=== PATIENT | female | born 1975 | race Caucasian/White ===

== ENCOUNTER → 2019-02-19 09:02 | Outpatient (CLI) | payer OTHER, SELFPAY ==
--- NOTE | 2019-02-19 09:03 | DI.MG.S_ITS ---
BILATERAL DIGITAL SCREENING MAMMOGRAM 3D/2D WITH CAD: 02/19/2019 CLINICAL: Routine screening. Comparison is made to exam dated: 10/25/2017 [facility]. The tissue of both breasts is heterogeneously dense. This may lower the sensitivity of mammography. Current study was also evaluated with a Computer Aided Detection (CAD) system. No significant masses, calcifications, or other findings are seen in either breast. There has been no significant interval change. IMPRESSION: NEGATIVE There is no mammographic evidence of malignancy. A 1 year screening mammogram is recommended. This exam was interpreted at Station ID: [id number]. NOTE: For mammograms, a report in lay terms will be sent to the patient. Approximately 15% of breast malignancies will not be visualized mammographically. In the management of a palpable breast mass, a negative mammogram must not discourage biopsy of a clinically suspicious lesion. Electronically Signed By: Armando hanson/louis:02/20/2019 11:39:16 copy to: Chad Pearce letter sent: Normal Exam ACR BI-RADS Category 1: Negative [id number]
== END ==
PROVIDERS: Family Provider Family Medicine; PCP Family Medicine; Visit Provider Specialist
DX: Z12.31 Encounter for screening mammogram for malignant neoplasm of breast (principal)
CPT/HCPCS: 77063; 77067

== ENCOUNTER → 2019-05-27 08:41 | Outpatient (CLI) | payer OTHER, SELFPAY ==
[2019-05-27 09:58] LABS: Add Manual Diff / Slide Review NO; Basophils Absolute Auto 0 /uL (0-100); Basophils Percent Auto 0.5 % (0-2); Eosinophils Absolute Auto 100 /uL (0-450); Eosinophils Percent Auto 0.9 % (2-4); Hematocrit 44.5 % (36-46); Hemoglobin 15.4 g/dL (12.0-16.0); Lymphocytes Absolute Auto 2400 /uL (1100-4500); Lymphocytes Percent Auto 36.9 % (25-40); Mean Corpuscular HGB Conc 34.6 % (30-36); Mean Corpuscular Volume 86.5 fL (80-100); Monocytes Absolute Auto 300 /uL (0-900); Monocytes Percent Auto 4.5 % (3-14); Neutrophils Absolute Auto 3700 /uL (1500-7000); Neutrophils Percent Auto 57.2 % (50-75); Platelet Count 219 X10^3/uL (150-400); Red Blood Cell Count 5.14 X10^6/uL (4.0-5.2); White Blood Cell Count 6.5 X10^3/uL (4.5-11.0)
[2019-05-27 10:25] LABS: Alanine Aminotransferase 20 IU/L (9-52); Albumin 4.2 g/dL (3.5-5.0); Albumin Globulin Ratio 1.4 (1.0-2.8); Alkaline Phosphatase 66 U/L (38-126); Aspartate Aminotransferase 28 IU/L (14-36); BUN Creatinine Ratio 15.7 (6-22); Bilirubin Total 0.4 mg/dL (0.2-1.3); Blood Urea Nitrogen 11 mg/dL (7-17); Calcium 8.9 mg/dL (8.4-10.2); Carbon Dioxide 27 mmol/L (22-32); Chloride 104 mmol/L (98-107); Cholesterol 182 mg/dL (140-199); Estimated Glomerular Filt Rate > 60.0 mL/min (>60); Globulin 2.9 g/dL (1.7-4.1); Glucose 88 mg/dL (70-100); HDL Cholesterol 56 mg/dL (40-60); HEMOLYSIS < 15 (0-50); LDL Cholesterol Calculated 99 mg/dL (<100); Potassium 4.7 mmol/L (3.4-5.1); Sodium 140 mmol/L (137-145); Total Protein 7.1 g/dL (6.3-8.2); Triglycerides 135 mg/dL (35-150)
== END ==
PROVIDERS: PCP Family Medicine; Visit Provider Family Medicine
DX: Z00.00 Encounter for general adult medical examination without abnormal findings (principal); Z13.6 Encounter for screening for cardiovascular disorders
CPT/HCPCS: 36415; 80053; 80061; 84443; 85025

== ENCOUNTER → 2019-12-02 12:14 | Outpatient (CLI) | payer OTHER, SELFPAY ==
--- NOTE | 2019-12-02 12:15 | DI.RAD.S_ITS ---
PROCEDURE: XR KNEE RT 3V INDICATIONS: knee and hip TECHNIQUE: 3 views of the knee were acquired. COMPARISON: None. FINDINGS: Bones: No fractures or dislocations. No suspicious bony lesions. Scattered degenerative subchondral sclerosis and spurring. Mild medial and lateral joint space narrowing Soft tissues: No joint effusion. No suspicious soft tissue calcifications. IMPRESSION: Mild knee joint degeneration. Dictated by: Cameron Szymanski M.D. on 12/02/2019 at 16:52 Approved by: Cameron Szymanski M.D. on 12/02/2019 at 16:55
--- NOTE | 2019-12-02 12:15 | DI.RAD.S_ITS ---
PROCEDURE: XR HIP W PEL IF DONE RT 2V INDICATIONS: knee and hip TECHNIQUE: 2 views of the hip were acquired. COMPARISON: None. FINDINGS: Bones: No fractures or dislocations. No suspicious bony lesions. The visualized pelvic ring appears intact. Moderate right hip joint degeneration. Scattered degenerative subchondral sclerosis and spurring. Soft tissues: No suspicious soft tissue calcifications or masses. IMPRESSION: Moderate right hip joint degeneration Dictated by: Cameron Szymanski M.D. on 12/02/2019 at 16:50 Approved by: Cameron Szymanski M.D. on 12/02/2019 at 16:52
== END ==
PROVIDERS: PCP Family Medicine; Referring Provider Family Medicine; Visit Provider Family Medicine
DX: M25.561 Pain in right knee (principal); M25.551 Pain in right hip; M16.11 Unilateral primary osteoarthritis, right hip; M17.11 Unilateral primary osteoarthritis, right knee
CPT/HCPCS: 73502; 73562

== ENCOUNTER 2020-05-15 09:45 | Outpatient (RCR) | payer OTHER, SELFPAY ==
--- NOTE | 2020-04-08 10:30 | PT.OIE ---
Current Diagnoses Unilateral primary osteoarthritis, unspecified hip (04/08/20) Unilateral primary osteoarthritis, unspecified knee (04/08/20) Pain in right hip (04/08/20) Stiffness of right hip, not elsewhere classified (04/08/20) Past Medical History (Last Reviewed 07/16/18 @ 08:50 by Isauro Fernandez PA-C) Chicken pox (Resolved ~1984) Meningitis spinal (Resolved ~1980) Painful menstrual periods (Resolved) Past Surgical History (Last Reviewed 07/16/18 @ 08:50 by Isauro Fernandez PA-C) History of gynecologic surgery (Resolved 11/24/17) Visit Care Team Role Provider Type Chad Pearce MD Attending Provider Physician Primary Care Provider Referring Provider Specialty: [facility] Address: [address] [place] [address] Email: [email or web address] Physical Therapy Initial Evaluation PT-OP-A Visit Information Start: 04/08/20 17:52 Freq: Status: Active Protocol: Document 04/08/20 09:45 DCW (Rec: 04/09/20 12:43 [facility] [id number]) Out-Patient Physical Therapy Visit Information Visit Information Visit Type Initial Evaluation Visit Start Time 09:45 Visit Stop Time 10:30 Total Visit Minutes 45 Visit Number 1 Number of DINKEY DISPATCHER Visits 0 Evaluation Information Evaluation Date 04/08/20 PT-OP-B Current Condition Start: 04/08/20 17:52 Freq: Status: Active Protocol: Document 04/08/20 09:45 DCW (Rec: 04/09/20 12:43 DC [id number]) Current Condition History of Current Condition Onset Date 9 months Current Complaints Right hip and knee pain, stiffness History of Current Condition Pt is a 44 year old female presenting with a nine month history of right hip pain. Pt reports it just seemed to suddenly start one day after a hike, and although it is not constant, it has been bothering her off and on for months, and it is present every day. Pt reports that the pain is not enough to stop her, because she is a mother to two young boys, so she stays active, she just needs to do things differently. Notes that she uses trekking poles when out walking over uneven surfaces, and uses a stand-up desk at work for when she feels like she is tightening up. Pt reports she has had a few instances of her hip getting stuck in a flexed position, and hurts when she tries to stand after an extended period of sitting. Pt also reports pain when trying to roll over in bed when her right leg is in an adducted position. Pain has recently been starting in her right knee, she believes due to compensatory changes. PT-OP-C Subjective Start: 04/08/20 17:52 Freq: Status: Active Protocol: Document 04/08/20 09:45 DCW (Rec: 04/09/20 12:43 DCW [id number]) OP-PT Subjective Patient Comments Patient Comments I kept hoping it would just get better, but it's been nine months. I has gotten a little better recently, and actually the past few days it has been much better. Patient Reported Progress Improving Patient Questionnaires Lower Extremity Functional Scale LEFS Score 56/80 = 70% LEFS Impairment 20 to 39% Impaired (Score 48- 62) OP-PT Pain Assessment Pain Assessment Grid Paper Pain Assessment Grid Completed Yes Location Right Anterior Hip Intensity 7 Scale Used Numeric (0 - 10) Description Pinching,Sharp,Stabbing Description- Other ranges 4-7/10 Pain Aggravating Factors Changing Position Other Pain Aggravating Factors Flexion/Adduction PT-OP-F Manual Assessment Start: 04/08/20 17:52 Freq: Status: Active Protocol: Document 04/08/20 09:45 DCW (Rec: 04/09/20 12:43 DCW [id number]) Manual Assessments Soft Tissue Assessment Soft Tissue Mobility Assessment Hypertonic and tenderness to palpation 2/4: Pain with wincing along right psoas and adductors. Joint Mobility Assessment Joint Mobility Assessment Passive ROM of right hip uncovers clear clunking feeling and complaint of pain with adduction at 90? flexion PT-OP-K Range of Motion Start: 04/08/20 17:52 Freq: Status: Active Protocol: Document 04/08/20 09:45 DCW (Rec: 04/09/20 12:43 DCW [id number]) Hip Goniometric Range of Motion Hip Right Active Hip ROM WFL Yes Hip ROM Limitations Hip ROM Limitations Bony Restriction,Pain Comments limited with adduction at 90? flexion PT-OP-L Special Tests Start: 04/08/20 17:52 Freq: Status: Active Protocol: Document 04/08/20 09:45 DCW (Rec: 04/09/20 12:43 DCW [id number]) Special Tests Hip Special Tests Anterior Labral Test Test Results Positive R Scour Test Test Results Positive R NADYA Test Results R anterior pain PT-OP-M Strength Start: 04/08/20 17:52 Freq: Status: Active Protocol: Document 04/08/20 09:45 DCW (Rec: 04/09/20 12:43 [id number] Hip Strength Hip Manual Muscle Testing Right Flexion (L2) 5 Normal Abduction 4- Good- Adduction 4 Good External Rotation 4+ Good+ Internal Rotation 4+ Good+ Left Flexion (L2) 5 Normal Abduction 4+ Good+ Adduction 4+ Good+ External Rotation 4+ Good+ Internal Rotation 4+ Good+ Knee Strength Knee Manual Muscle Testing Right Flexion (S2) 5 Normal Extension (L3) 5 Normal Left Flexion (S2) 5 Normal Extension (L3) 5 Normal PT-OP-Q Treatments Start: 04/08/20 17:52 Freq: Status: Active Protocol: Document 04/08/20 09:45 DCW (Rec: 04/09/20 12:43 DC [id number]) Therapeutic Exercises Sidelying Exercises 3 Sidelying Exercise Name Hip Abduction Side right 2 Sidelying Exercise Name Reverse Clamshell Side right 1 Sidelying Exercise Name Clamshell Side right PT-OP-T Assessment and Plan Start: 04/08/20 17:52 Freq: Status: Active Protocol: Document 04/08/20 09:45 DCW (Rec: 04/09/20 12:43 [id number] Physical Therapy Assessment Rehab Potential Rehabilitation Potential Good Evaluation Complexity Number of Personal Factors/Comorbidities 1-2 Number of Body Systems Impaired 1-2 Clinical Presentation at Evaluation Stable Impairments Impairments Functional Mobility,Pain,ROM, Strength Goals Three Impairment Positive right hip test for scour and anterior labrum tests Residential Sales Rep Goal (LTG) Right hip special testing negative LTG Duration 06/09/20 Two Impairment Pt experiences a sticking of her hip on flexion Residential Sales Rep Goal (LTG) Pt to report no instances of her hip getting stuck in flexion over two weeks LTG Duration 06/09/20 One Impairment Pt does not have an appropriate home exercise program Short Term Goal (STG) Pt to be independent and complaint with an appropriate HEP STG Duration 05/09/20 Assessment Summary Assessment Pt presents with signs and symptoms consistent with a possible labral tear in her right hip. Positive scour and anterior labrum testing, combined with subjective complaints of her hip getting stuck in a flexed position all point to the possibility of labral involvement. Severity of any possible tear difficult to determine without imaging, however pt is noticing improvement recently, and does not seem to be restricted with most movement, which would lead to an assumption that if there is a tear present, it may be mild, and may just need added time to heal. Pt should benefit from skilled therapy focusing on increasing hip strength, mobility, and stability, as well as increasing quality of functional movement to limit compensatory changes leading to injury of her knee. It instructed in an HEP today, and will be unable to return for a follow-up within the next two-three weeks due to her family moving into a new home, but she will return after her move to report on porgress and level of function . May benefit from an MRI if conservative treatment is not effective. Physical Therapy Plan Frequency and Duration Frequency of Treatment 1x/Week Duration of Treatment 8 weeks Plan of Care Start Date 04/08/20 Plan of Care End Date 06/03/20 Therapeutic Interventions Therapeutic Interventions Home Exercise Program,Joint Mobilizations,Manual Therapy, Patient/Caregiver Education, Self-Care/Home Management,Soft Tissue Mobilization, Therapeutic Exercises Modalities Cold Pack/Ice Massage,Electric Stimulation,Hot Packs, Ultrasound Next Visit Focus/Plan Next Note Type Treatment Note Next Visit Plan Strengthening, joint mobilization, improving hip stability
--- NOTE | 2020-04-08 10:30 | PT.OPPOC ---
Physical, Occupational & Speech Therapy At [facility] Current Diagnoses Unilateral primary osteoarthritis, unspecified hip (04/08/20) Unilateral primary osteoarthritis, unspecified knee (04/08/20) Pain in right hip (04/08/20) Stiffness of right hip, not elsewhere classified (04/08/20) Visit Care Team Role Provider Type Chad Pearce MD Attending Provider Physician Primary Care Provider Referring Provider Specialty: Family Practice Address: [address] [place] [address], [id number] Email: [email or web address] Plan Of Care PT-OP-T Assessment and Plan Start: 04/08/20 17:52 Freq: Status: Active Protocol: Document 04/08/20 09:45 DCW (Rec: 04/09/20 12:43 DCW [id number]) Physical Therapy Assessment Rehab Potential Rehabilitation Potential Good Evaluation Complexity Number of Personal Factors/Comorbidities 1-2 Number of Body Systems Impaired 1-2 Clinical Presentation at Evaluation Stable Impairments Impairments Functional Mobility,Pain,ROM, Strength Goals Three Impairment Positive right hip test for scour and anterior labrum tests Halfway Goal (LTG) Right hip special testing negative LTG Duration 06/09/20 Two Impairment Pt experiences a sticking of her hip on flexion Halfway Goal (LTG) Pt to report no instances of her hip getting stuck in flexion over two weeks LTG Duration 06/09/20 One Impairment Pt does not have an appropriate home exercise program Short Term Goal (STG) Pt to be independent and complaint with an appropriate HEP STG Duration 05/09/20 Assessment Summary Assessment Pt presents with signs and symptoms consistent with a possible labral tear in her right hip. Positive scour and anterior labrum testing, combined with subjective complaints of her hip getting stuck in a flexed position all point to the possibility of labral involvement. Severity of any possible tear difficult to determine without imaging, however pt is noticing improvement recently, and does not seem to be restricted with most movement, which would lead to an assumption that if there is a tear present, it may be mild, and may just need added time to heal. Pt should benefit from skilled therapy focusing on increasing hip strength, mobility, and stability, as well as increasing quality of functional movement to limit compensatory changes leading to injury of her knee. It instructed in an HEP today, and will be unable to return for a follow-up within the next two-three weeks due to her family moving into a new home, but she will return after her move to report on porgress and level of function . May benefit from an MRI if conservative treatment is not effective. Physical Therapy Plan Frequency and Duration Frequency of Treatment 1x/Week Duration of Treatment 8 weeks Plan of Care Start Date 04/08/20 Plan of Care End Date 06/03/20 Therapeutic Interventions Therapeutic Interventions Home Exercise Program,Joint Mobilizations,Manual Therapy, Patient/Caregiver Education, Self-Care/Home Management,Soft Tissue Mobilization, Therapeutic Exercises Modalities Cold Pack/Ice Massage,Electric Stimulation,Hot Packs, Ultrasound Next Visit Focus/Plan Next Note Type Treatment Note Next Visit Plan Strengthening, joint mobilization, improving hip stability Plan of Care Dates Plan of Care Start Date 04/08/20 Plan of Care End Date 06/03/20 Electronically Signed by: Azam Ruffin, PT 04/09/20 [id number] Please Sign and Return: I have reviewed this Plan of Care and certify that the skilled therapy services above are required to meet the patient?s needs. Physician Signature Date Printed Name and Credentials Clinical Instructor Signature Printed Name and Credentials
--- NOTE | 2020-05-15 17:07 | PT.OTN ---
Current Diagnoses Unilateral primary osteoarthritis, unspecified hip (05/15/20) Unilateral primary osteoarthritis, unspecified knee (05/15/20) Pain in right hip (05/15/20) Stiffness of right hip, not elsewhere classified (05/15/20) Physical Therapy Treatment Note PT-OP-A Visit Information Start: 04/08/20 17:52 Freq: Status: Active Protocol: Document 05/15/20 09:55 LRN (Rec: 05/15/20 10:36 LRN [id number]) Out-Patient Physical Therapy Visit Information Visit Information Visit Type Treatment Note Visit Start Time 09:55 Visit Stop Time 10:34 Total Visit Minutes 39 Visit Number 2 Evaluation Information Evaluation Date 04/08/20 PT-OP-B Current Condition Start: 04/08/20 17:52 Freq: Status: Active Protocol: Document 04/08/20 09:45 DCW (Rec: 04/09/20 12:43 DCW [id number]) Current Condition History of Current Condition Onset Date 9 months Current Complaints Right hip and knee pain, stiffness History of Current Condition Pt is a 44 year old female presenting with a nine month history of right hip pain. Pt reports it just seemed to suddenly start one day after a hike, and although it is not constant, it has been bothering her off and on for months, and it is present every day. Pt reports that the pain is not enough to stop her, because she is a mother to two young boys, so she stays active, she just needs to do things differently. Noptes that she uses trekking poles when out walking over uneven surfaces, and uses a stand-up desk at work for when she feels like she is tightening up. Pt reports she has had a few instances of her hip getting stuck in a flexed position, and hurts when she tries to stand after an extended period of sitting. Pt also reports pain when trying to roll over in bed when her right leg is in an adducted position. Pain has recently been starting in her right knee, she believes due to compensatory changes. PT-OP-C Subjective Start: 04/08/20 17:52 Freq: Status: Active Protocol: Document 05/15/20 09:55 LRN (Rec: 05/15/20 10:36 LRN [id number]) OP-PT Subjective Patient Comments Patient Comments Last couple months is better, but sitting is worst. Most stiff and painful in the R groin radiating to the R knee. As walk and move it loosens. Can only recall 2 exercises. PT-OP-F Manual Assessment Start: 04/08/20 17:52 Freq: Status: Active Protocol: Document 04/08/20 09:45 DCW (Rec: 04/09/20 12:43 DCW [id number]) Manual Assessments Soft Tissue Assessment Soft Tissue Mobility Assessment Hypertonic and tenderness to palpation 2/4: Pain with wincing along right psoas and adductors. Joint Mobility Assessment Joint Mobility Assessment Passive ROM of right hip uncovers clear clunking feeling and complaint of pain with adduction at 90? flexion PT-OP-K Range of Motion Start: 04/08/20 17:52 Freq: Status: Active Protocol: Document 04/08/20 09:45 DCW (Rec: 04/09/20 12:43 DCW [id number]) Hip Goniometric Range of Motion Hip Right Active Hip ROM WFL Yes Hip ROM Limitations Hip ROM Limitations Bony Restriction,Pain Comments limited with adduction at 90? flexion PT-OP-L Special Tests Start: 04/08/20 17:52 Freq: Status: Active Protocol: Document 04/08/20 09:45 DCW (Rec: 04/09/20 12:43 DCW [id number]) Special Tests Hip Special Tests Anterior Labral Test Test Results Positive R Scour Test Test Results Positive R NADYA Test Results R anterior pain PT-OP-M Strength Start: 04/08/20 17:52 Freq: Status: Active Protocol: Document 04/08/20 09:45 DCW (Rec: 04/09/20 12:43 DCW [id number]) Hip Strength Hip Manual Muscle Testing Right Flexion (L2) 5 Normal Abduction 4- Good- Adduction 4 Good External Rotation 4+ Good+ Internal Rotation 4+ Good+ Left Flexion (L2) 5 Normal Abduction 4+ Good+ Adduction 4+ Good+ External Rotation 4+ Good+ Internal Rotation 4+ Good+ Knee Strength Knee Manual Muscle Testing Right Flexion (S2) 5 Normal Extension (L3) 5 Normal Left Flexion (S2) 5 Normal Extension (L3) 5 Normal PT-OP-Q Treatments Start: 04/08/20 17:52 Freq: Status: Active Protocol: Document 05/15/20 09:55 LRN (Rec: 05/15/20 10:36 LRN [id number]) Therapeutic Exercises Supine Exercises 1 Supine Exercise Name L KTC stretch with femoral head posterior/inferior glide applied Side left Reps/Minutes 4' Sidelying Exercises 4 Sidelying Exercise Name Hip ER stretch in BKFO position with bolster for support Side right 3 Sidelying Exercise Name Hip Abduction Side right Reps/Minutes 15 x 2 Comments Phys and v cuing needed for proper performance of ex 2 Sidelying Exercise Name Reverse Clamshell Side right Reps/Minutes 15x 2 Comments Phys cuing needed to start for proper core stab 1 Sidelying Exercise Name Clamshell Side right Reps/Minutes 15x 2 Comments Much phys and cuing needed for proper positioning for exercise Sitting Exercises 1 Sitting Exercise Name Hip ER/IR painfree movement Side bilateral Reps/Minutes 2' Comments Done during discussion of anatomy education Manual Therapy Treatment Joint Mobilizations 1 Joint L Femoral Acetabular joint Direction Posterior/inferior Grade III Body Position Hooklying Reps/Duration 8 Comments Leg in various positions with best position in supine with L leg ~20 deg's ER'd/AB'd. Self-Care/Home Management Treatment Education Patient Education Joint Protection,Pain Management Other Education Pt educated in general joint mechanics and mechanics of movement and pain/inflammation . Activities Self-Care/Home Management Activities Recommended pt use ice to anterior hip for pain management. PT-OP-T Assessment and Plan Start: 04/08/20 17:52 Freq: Status: Active Protocol: Document 05/15/20 09:55 LRN (Rec: 05/15/20 10:36 LRN [id number]) Physical Therapy Assessment Goals Three Impairment Positive right hip test for scour and anterior labrum tests Fpc Goal (LTG) Right hip special testing negative LTG Duration 06/09/20 Two Impairment Pt experiences a sticking of her hip on flexion Fpc Goal (LTG) Pt to report no instances of her hip getting stuck in flexion over two weeks LTG Duration 06/09/20 One Impairment Pt does not have an appropriate home exercise program Short Term Goal (STG) Pt to be independent and complaint with an appropriate HEP STG Duration 05/09/20 Progress Towards Goals Progress Comments L anterior hip (groin) pain decreased from 11/25 to 110 after therapy. Assessment Summary Assessment Possible labral tear of R hip. R hip IR is easier than ER and without pain. + response to JMT of posterior glide of L femoral head. Pt able to lie supine without pain after mobilization. Not able to get a L posterior hip stretch due to onset of anterior groin discomfort first. Pt choosing to ice at home. Physical Therapy Plan Frequency and Duration Frequency of Treatment 1x/Week Duration of Treatment 8 weeks Plan of Care Start Date 04/08/20 Plan of Care End Date 06/03/20 Next Visit Focus/Plan Next Note Type Treatment Note Next Visit Plan Strengthening, joint mobilization, improving hip stability
--- NOTE | 2020-08-07 10:27 | PT.OPDS ---
Current Diagnoses Unilateral primary osteoarthritis, unspecified hip (05/15/20) Unilateral primary osteoarthritis, unspecified knee (05/15/20) Pain in right hip (05/15/20) Stiffness of right hip, not elsewhere classified (05/15/20) Visit Care Team Role Provider Type Chad Pearce MD Attending Provider Physician Primary Care Provider Referring Provider Specialty: [facility] Address: [address] [place] [address], [facility] Email: [email or web address] Visit Number Visit Number 2 Discharge Summary PT-OP-B Current Condition Start: 04/08/20 17:52 Freq: Status: Active Protocol: Document 04/08/20 09:45 DCW (Rec: 04/09/20 12:43 DCW [id number]) Current Condition History of Current Condition Onset Date 9 months Current Complaints Right hip and knee pain, stiffness History of Current Condition Pt is a 44 year old female presenting with a nine month history of right hip pain. Pt reports it just seemed to suddenly start one day after a hike, and although it is not constant, it has been bothering her off and on for months, and it is present every day. Pt reports that the pain is not enough to stop her, because she is a mother to two young boys, so she stays active, she just needs to do things differently. [place] that she uses trekking poles when out walking over uneven surfaces, and uses a stand-up desk at work for when she feels like she is tightening up. Pt reports she has had a few instances of her hip getting stuck in a flexed position, and hurts when she tries to stand after an extended period of sitting. Pt also reports pain when trying to roll over in bed when her right leg is in an adducted position. Pain has recently been starting in her right knee, she believes due to compensatory changes. PT-OP-C Subjective Start: 04/08/20 17:52 Freq: Status: Active Protocol: Document 05/15/20 09:55 LRN (Rec: 05/15/20 10:36 LRN [id number]) OP-PT Subjective Patient Comments Patient Comments Last couple months is better, but sitting is worst. Most stiff and painful in the R groin radiating to the R knee. As walk and move it loosens. Can only recall 2 exercises. PT-OP-F Manual Assessment Start: 04/08/20 17:52 Freq: Status: Active Protocol: Document 04/08/20 09:45 DCW (Rec: 04/09/20 12:43 DCW [id number]) Manual Assessments Soft Tissue Assessment Soft Tissue Mobility Assessment Hypertonic and tenderness to palpation 2/4: Pain with wincing along right psoas and adductors. Joint Mobility Assessment Joint Mobility Assessment Passive ROM of right hip uncovers clear clunking feeling and complaint of pain with adduction at 90? flexion PT-OP-K Range of Motion Start: 04/08/20 17:52 Freq: Status: Active Protocol: Document 04/08/20 09:45 DCW (Rec: 04/09/20 12:43 DCW [id number]) Hip Goniometric Range of Motion Hip Right Active Hip ROM WFL Yes Hip ROM Limitations Hip ROM Limitations Bony Restriction,Pain Comments limited with adduction at 90? flexion PT-OP-L Special Tests Start: 04/08/20 17:52 Freq: Status: Active Protocol: Document 04/08/20 09:45 DCW (Rec: 04/09/20 12:43 DCW [id number]) Special Tests Hip Special Tests Anterior Labral Test Test Results Positive R Scour Test Test Results Positive R NADYA Test Results R anterior pain PT-OP-M Strength Start: 04/08/20 17:52 Freq: Status: Active Protocol: Document 04/08/20 09:45 DCW (Rec: 04/09/20 12:43 DCW [id number]) Hip Strength Hip Manual Muscle Testing Right Flexion (L2) 5 Normal Abduction 4- Good- Adduction 4 Good External Rotation 4+ Good+ Internal Rotation 4+ Good+ Left Flexion (L2) 5 Normal Abduction 4+ Good+ Adduction 4+ Good+ External Rotation 4+ Good+ Internal Rotation 4+ Good+ Knee Strength Knee Manual Muscle Testing Right Flexion (S2) 5 Normal Extension (L3) 5 Normal Left Flexion (S2) 5 Normal Extension (L3) 5 Normal PT-OP-T Assessment and Plan Start: 04/08/20 17:52 Freq: Status: Active Protocol: Document 08/07/20 10:25 DCW (Rec: 08/07/20 10:27 RASHID [id number]) Physical Therapy Assessment Assessment Summary Assessment Pt never scheduled more appointments following her second visit. Pt has now not been seen in nearly three months. Pt will be discharged at this time, will need a new referral in order to return to skilled therapy.
== END 2020-08-14 08:10 ==
LOC: PHYS 09:45
PROVIDERS: PCP Family Medicine; Referring Provider Family Medicine; Visit Provider Family Medicine
DX: M16.10 Unilateral primary osteoarthritis, unspecified hip (principal); M17.10 Unilateral primary osteoarthritis, unspecified knee; M25.551 Pain in right hip; M25.651 Stiffness of right hip, not elsewhere classified
CPT/HCPCS: 97110; 97140; 97161

== ENCOUNTER → 2020-08-28 08:26 | Outpatient (CLI) | payer OTHER, SELFPAY ==
[2020-08-28 09:19] LABS: Add Manual Diff / Slide Review NO; Basophils Absolute Auto 0 /uL (0-100); Basophils Percent Auto 0.3 % (0-2); Eosinophils Absolute Auto 100 /uL (0-450); Hematocrit 45.5 % (36-46); Hemoglobin 15.6 g/dL (12.0-16.0); Lymphocytes Absolute Auto 2300 /uL (1100-4500); Mean Corpuscular HGB Conc 34.3 % (30-36); Mean Corpuscular Hemoglobin 29.6 PG (26-34); Mean Corpuscular Volume 86.4 fL (80-100); Monocytes Absolute Auto 500 /uL (0-900); Monocytes Percent Auto 6.7 % (3-14); Neutrophils Absolute Auto 4300 /uL (1500-7000); Platelet Count 233 X10^3/uL (150-400); Red Blood Cell Count 5.27 X10^6/uL (4.0-5.2); Red Cell Distribution Width 12.8 % (11.6-14.8); White Blood Cell Count 7.1 X10^3/uL (4.5-11.0)
[2020-08-28 09:53] LABS: Alanine Aminotransferase 17 IU/L (<35); Albumin 4.2 g/dL (3.5-5.0); Albumin Globulin Ratio 1.4 (1.0-2.8); Alkaline Phosphatase 73 U/L (38-126); Aspartate Aminotransferase 19 IU/L (14-36); BUN Creatinine Ratio 14.1 (6-22); Bilirubin Total 0.6 mg/dL (0.2-1.3); Blood Urea Nitrogen 10 mg/dL (7-17); Calcium 9.2 mg/dL (8.4-10.2); Carbon Dioxide 25 mmol/L (22-32); Chloride 105 mmol/L (98-107); Cholesterol 185 mg/dL (140-199); Estimated Glomerular Filt Rate > 60.0 mL/min (>60); Globulin 2.9 g/dL (1.7-4.1); Glucose 92 mg/dL (70-100); HDL Cholesterol 62 mg/dL (40-60); HEMOLYSIS < 15 (0-50); LDL Cholesterol Calculated 105 mg/dL (<100); Potassium 4.3 mmol/L (3.4-5.1); Sodium 136 mmol/L (137-145); Total Protein 7.1 g/dL (6.3-8.2); Triglycerides 89 mg/dL (35-150)
[2020-08-28 10:23] LABS: TSH w/ Reflex to FT4 1.69 uIU/mL (0.47-4.68)
== END ==
PROVIDERS: PCP Family Medicine; Referring Provider Family Medicine; Visit Provider Family Medicine
DX: Z00.00 Encounter for general adult medical examination without abnormal findings (principal); Z13.1 Encounter for screening for diabetes mellitus; Z13.6 Encounter for screening for cardiovascular disorders
CPT/HCPCS: 36415; 80053; 80061; 84443; 85025

== ENCOUNTER → 2020-09-28 16:51 | Outpatient (CLI) | payer OTHER, SELFPAY ==
--- NOTE | 2020-09-28 16:54 | DI.MG.S_ITS ---
BILATERAL DIGITAL SCREENING MAMMOGRAM 3D/2D WITH CAD: 09/28/2020 CLINICAL: Routine screening. Comparison is made to exams dated: 02/19/2019 mammogram and 10/25/2017 mammogram - [facility]. The tissue of both breasts is heterogeneously dense. This may lower the sensitivity of mammography. Current study was also evaluated with a Computer Aided Detection (CAD) system. No significant masses, calcifications, or other findings are seen in either breast. There has been no significant interval change. IMPRESSION: NEGATIVE There is no mammographic evidence of malignancy. A 1 year screening mammogram is recommended. This exam was interpreted at Station ID: [id number]. NOTE: For mammograms, a report in lay terms will be sent to the patient. Approximately 15% of breast malignancies will not be visualized mammographically. In the management of a palpable breast mass, a negative mammogram must not discourage biopsy of a clinically suspicious lesion. Electronically Signed By: Chad Larios M.D., jr/louis:09/28/2020 17:32:23 copy to: GALLO STINSON letter sent: Normal Exam ACR BI-RADS Category 1: Negative 3341F
== END ==
PROVIDERS: PCP Specialist; Referring Provider Family Medicine; Visit Provider Family Medicine
DX: Z12.31 Encounter for screening mammogram for malignant neoplasm of breast (principal)
CPT/HCPCS: 77063; 77067

== ENCOUNTER → 2021-01-08 09:40 | Outpatient (CLI) | payer OTHER, SELFPAY ==
[2021-01-08] MEDS: COVID-19 VACC #1, MRNA(MOD) 100 MCG/0.5 ML VIAL IM (09:56)
== END ==
PROVIDERS: PCP Family Medicine; Visit Provider Internal Medicine
DX: Z23 Encounter for immunization (principal)
CPT/HCPCS: 0011A; 91301

== ENCOUNTER → 2021-02-05 09:55 | Outpatient (CLI) | payer OTHER, SELFPAY ==
[2021-02-05] MEDS: COVID-19 VACC #2, MRNA(MOD) 100 MCG/0.5 ML VIAL IM (10:03)
== END ==
PROVIDERS: PCP Family Medicine; Visit Provider Internal Medicine
DX: Z23 Encounter for immunization (principal)
CPT/HCPCS: 0012A; 91301

== ENCOUNTER → 2021-07-14 10:25 | Outpatient (CLI) | payer OTHER, SELFPAY ==
[2021-07-14 12:24] LABS: COVID19 -Nasal RAPID Negative (Negative)
== END ==
PROVIDERS: PCP Family Medicine; Visit Provider Nurse Practitioner Family
DX: Z20.822 Contact with and (suspected) exposure to COVID-19 (principal); R05.9 Cough, unspecified; R51.9 Headache, unspecified; R53.83 Other fatigue
CPT/HCPCS: 87635

== ENCOUNTER → 2021-07-20 10:23 | Outpatient (CLI) | payer OTHER, SELFPAY ==
--- NOTE | 2021-07-20 10:25 | DI.RAD.S_ITS ---
PROCEDURE: XR CHEST 2V INDICATIONS: Persistent cough x 1 year; getting worse last 30 days TECHNIQUE: 2 views of the chest were acquired. COMPARISON: None. FINDINGS: Surgical changes and devices: None. Lungs and pleura: No consolidation, pleural effusions or pneumothorax. Mediastinum: Mediastinal contours are normal. Heart size is normal. Bones and chest wall: No suspicious bony abnormalities. Soft tissues appear unremarkable. IMPRESSION: No acute cardiopulmonary abnormality. Dictated by: Pascual Rodriguez M.D. on 07/20/2021 at 10:36 Approved by: Pascual Rodriguez M.D. on 07/20/2021 at 10:36
[2021-07-20 12:12] LABS: Add Manual Diff / Slide Review NO; Basophils Absolute Auto 0 /uL (0-100); Basophils Percent Auto 0.3 % (0-2); Eosinophils Absolute Auto 100 /uL (0-450); Eosinophils Percent Auto 1.1 % (2-4); Hematocrit 41.8 % (36-46); Hemoglobin 14.6 g/dL (12.0-16.0); Lymphocytes Absolute Auto 2000 /uL (1100-4500); Mean Corpuscular HGB Conc 34.9 % (30-36); Mean Corpuscular Hemoglobin 29.4 PG (26-34); Mean Corpuscular Volume 84.2 fL (80-100); Monocytes Absolute Auto 500 /uL (0-900); Monocytes Percent Auto 4.7 % (3-14); Neutrophils Absolute Auto 7400 /uL (1500-7000); Neutrophils Percent Auto 73.9 % (50-75); Platelet Count 243 X10^3/uL (150-400); Red Blood Cell Count 4.97 X10^6/uL (4.0-5.2); Red Cell Distribution Width 13.4 % (11.6-14.8)
== END ==
PROVIDERS: PCP Family Medicine; Referring Provider Physician Assistant; Visit Provider Physician Assistant
DX: R05.9 Cough, unspecified (principal); R52 Pain, unspecified; R68.83 Chills (without fever)
CPT/HCPCS: 36415; 71046; 85025

== ENCOUNTER → 2021-07-28 08:55 | Outpatient (CLI) | payer OTHER, SELFPAY ==
[2021-07-28 10:42] LABS: Vitamin D 25 Hydroxy (D3) 28.3 ng/mL (30.0-100.0)
[2021-07-28 10:56] LABS: Thyroid Stimulating Hormone 0.948 uIU/mL (0.47-4.68)
== END ==
PROVIDERS: PCP Family Medicine; Referring Provider Physician Assistant; Visit Provider Physician Assistant
DX: R53.82 Chronic fatigue, unspecified (principal); R79.89 Other specified abnormal findings of blood chemistry; R05.9 Cough, unspecified; R52 Pain, unspecified
CPT/HCPCS: 36415; 82306; 84443

== ENCOUNTER → 2021-08-05 14:50 | Outpatient (CLI) | payer OTHER, SELFPAY ==
[2021-08-05 16:13] LABS: COVID19 -Nasal RAPID Negative (Negative)
== END ==
PROVIDERS: PCP Family Medicine; Referring Provider Internal Medicine; Visit Provider Internal Medicine
DX: Z20.822 Contact with and (suspected) exposure to COVID-19 (principal)
CPT/HCPCS: 87635; C9803

== ENCOUNTER → 2021-08-06 07:02 | Outpatient (CLI) | payer OTHER, SELFPAY ==
--- NOTE | 2021-08-11 08:49 | PM.PFT.1 ---
Pulmonary Function Test Referral & Results Date Patient Seen: 08/06/21 Requesting provider: Ciera Boyer Results: The spirometry demonstrates an FVC of 4.93 L which is 111% of predicted. The FEV1 was measured at 3.98 L which is 112% of predicted. The FEV1/FVC ratio was 81 which is 99% of predicted. Following the administration of bronchodilator there was a 35% improvement in FEF 25-75% Lung volumes show an SVC of 4.94 L which is 123% of predicted. The diffusing capacity was measured at 31.28 which is 96% of predicted. The maximum voluntary ventilation was normal Interpretation: This study demonstrates normal pulmonary function
== END ==
PROVIDERS: PCP Family Medicine; Referring Provider Physician Assistant; Visit Provider Physician Assistant
DX: R05.9 Cough, unspecified (principal)
CPT/HCPCS: 94060; 94726; 94729

== ENCOUNTER → 2022-06-01 08:02 | Outpatient (CLI) | payer OTHER, MEDICAID, SELFPAY ==
[2022-06-01 10:36] LABS: Alanine Aminotransferase 14 IU/L (<35); Albumin 4.1 g/dL (3.5-5.0); Albumin Globulin Ratio 1.5 (1.0-2.8); Alkaline Phosphatase 65 U/L (38-126); Aspartate Aminotransferase 21 IU/L (14-36); BUN Creatinine Ratio 18.9 (6-22); Bilirubin Total 0.7 mg/dL (0.2-1.3); Blood Urea Nitrogen 14 mg/dL (7-17); Calcium 8.8 mg/dL (8.4-10.2); Carbon Dioxide 25 mmol/L (22-32); Chloride 103 mmol/L (98-107); Cholesterol 172 mg/dL (140-199); Estimated Glomerular Filt Rate > 60 mL/min (>60); Globulin 2.7 g/dL (1.7-4.1); Glucose 81 mg/dL (70-100); HDL Cholesterol 52 mg/dL (40-60); HEMOLYSIS < 15 (0-50); LDL Cholesterol Calculated 105 mg/dL (<100); Potassium 4.3 mmol/L (3.4-5.1); Sodium 138 mmol/L (137-145); Total Protein 6.8 g/dL (6.3-8.2); Triglycerides 74 mg/dL (35-150)
[2022-06-01 10:51] LABS: Vitamin D 25 Hydroxy (D3) 36.1 ng/mL (30.0-100.0)
[2022-06-01 11:08] LABS: TSH w/ Reflex to FT4 1.06 uIU/mL (0.47-4.68)
== END ==
PROVIDERS: PCP Family Medicine; Referring Provider Physician Assistant; Visit Provider Physician Assistant
DX: E55.9 Vitamin D deficiency, unspecified (principal); R53.82 Chronic fatigue, unspecified; Z13.220 Encounter for screening for lipoid disorders; Z13.6 Encounter for screening for cardiovascular disorders
CPT/HCPCS: 36415; 80053; 80061; 82306; 84443

== ENCOUNTER → 2022-06-09 12:45 | Outpatient (CLI) | payer OTHER, MEDICAID, SELFPAY ==
--- NOTE | 2022-06-09 12:47 | DI.US.S_ITS ---
PROCEDURE: US PELVIC COMPLETE INDICATIONS: Heavy menses q 3 weeks TECHNIQUE: Real-time scanning was performed of the pelvic organs, with image documentation. Additional endovaginal scanning was necessary due to incomplete visualization of the adnexal and endometrial structures by transabdominal scanning. COMPARISON: [facility], US, PELVIC COMPLETE, 01/13/2016, 15:39. FINDINGS: Uterus: Uterus is anteverted and normal in size at 9.4 x 4.2 x 5.4 cm. The myometrium is mildly heterogeneous. The endometrium measures 11.7 mm combined thickness. There are nabothian cyst in cervix. Ovaries: The right ovary measures 3.3 x 2.2 x 2.6 cm, with a calculated ovarian volume of 9.6 cc. The left ovary is not visualized. There is a 2.0 x 2.0 x 1.8 cm simple cyst in the right ovary. Less than 12 follicles can be seen in the right ovary. No adnexal masses are seen. Other: No pathologic free abdominal or pelvic fluid. IMPRESSION: 1. Endometrium is prominent but within normal limits for a premenopausal woman. 2. Mildly heterogeneous myometrium. 3. A 2 cm cyst in the right ovary, most likely a dominant ovarian follicle. 4. Left ovary is not visualized, therefore, cannot be evaluated. We strive to produce accurate, complete, and clear reports of imaging services. To assist us in improving patient care, this report was composed using standard report templates and voice recognition software. Therefore, it may contain abnormal punctuation, insertions and/or omissions. Occasional wrong-word or sound-alike substitutions may occur. Though we review the report and make efforts to correct it, we do recommend that the report be read carefully in proper context to recognize any text inaccuracies. Dictated by: Josue Ramos M.D. on 06/10/2022 at 8:08 Approved by: Josue Ramos M.D. on 06/10/2022 at 8:11
== END ==
PROVIDERS: PCP Family Medicine; Referring Provider Physician Assistant; Visit Provider Physician Assistant
DX: N94.4 Primary dysmenorrhea (principal); N92.4 Excessive bleeding in the premenopausal period; N83.201 Unspecified ovarian cyst, right side
CPT/HCPCS: 76830; 76856

== ENCOUNTER → 2022-06-10 07:49 | Outpatient (CLI) | payer OTHER, MEDICAID, SELFPAY ==
[2022-06-13 15:59] LABS: Fecal Immunochemical Test Negative (Negative)
== END ==
PROVIDERS: PCP Family Medicine; Referring Provider Physician Assistant; Visit Provider Physician Assistant
DX: Z12.11 Encounter for screening for malignant neoplasm of colon (principal)
CPT/HCPCS: 82274

== ENCOUNTER → 2022-06-13 12:49 | Outpatient (CLI) | payer OTHER, MEDICAID, SELFPAY | PROVIDERS: PCP Family Medicine; Referring Provider Physician Assistant; Visit Provider Physician Assistant | DX: M85.80 Other specified disorders of bone density and structure, unspecified site (principal); Z82.62 Family history of osteoporosis | CPT/HCPCS: 77080 ==

== ENCOUNTER → 2022-09-29 11:01 | Outpatient (CLI) | payer BC, OTHER, MEDICAID, SELFPAY ==
[2022-09-29 11:40] LABS: Add Manual Diff / Slide Review NO; Basophils Absolute Auto 0 /uL (0-100); Basophils Percent Auto 0.3 % (0-2); Eosinophils Absolute Auto 0 /uL (0-450); Eosinophils Percent Auto 0.3 % (2-4); Hematocrit 42.7 % (36-46); Hemoglobin 14.8 g/dL (12.0-16.0); Lymphocytes Absolute Auto 2200 /uL (1100-4500); Lymphocytes Percent Auto 30.9 % (25-40); Mean Corpuscular HGB Conc 34.6 % (30-36); Mean Corpuscular Hemoglobin 29.7 PG (26-34); Mean Corpuscular Volume 85.8 fL (80-100); Monocytes Absolute Auto 500 /uL (0-900); Monocytes Percent Auto 6.5 % (3-14); Neutrophils Absolute Auto 4500 /uL (1500-7000); Platelet Count 210 X10^3/uL (150-400); Red Blood Cell Count 4.98 X10^6/uL (4.0-5.2); Red Cell Distribution Width 12.9 % (11.6-14.8); White Blood Cell Count 7.2 X10^3/uL (4.5-11.0)
[2022-09-29 12:57] LABS: Vitamin B12 626 pg/mL (239-931)
== END ==
PROVIDERS: PCP Family Medicine; Referring Provider Family Medicine; Visit Provider Family Medicine
DX: R53.82 Chronic fatigue, unspecified (principal); E55.9 Vitamin D deficiency, unspecified
CPT/HCPCS: 36415; 82607; 85025

== ENCOUNTER → 2022-12-09 13:08 | Outpatient (CLI) | payer BC, OTHER, MEDICAID, SELFPAY ==
--- NOTE | 2022-12-09 | DI.MG.S_ITS ---
BILATERAL DIGITAL SCREENING MAMMOGRAM 3D/2D WITH CAD: 12/09/2022 CLINICAL: Routine screening. Comparison is made to exams dated: 09/28/2020 mammogram, 02/19/2019 mammogram, and 10/25/2017 mammogram - [facility]. Both breasts are heterogeneously dense, which may obscure small masses (category c / 51-75% glandular tissue). Current study was also evaluated with a Computer Aided Detection (CAD) system. No significant masses, calcifications, or other findings are seen in either breast. There has been no significant interval change. IMPRESSION: NEGATIVE There is no mammographic evidence of malignancy. A 1 year screening mammogram is recommended. Based on the Tyrer Cuzick model (a risk assessment model) the patient's lifetime risk is 13.5% and her 10 year risk is 2.5%. According to the ACR, ACS, and NCCN guidelines, an annual breast MRI exam along with mammogram is recommended if the patient's lifetime risk is 20% or greater. This exam was interpreted at Station ID: [id number]. NOTE: For mammograms, a report in lay terms will be sent to the patient. Approximately 15% of breast malignancies will not be visualized mammographically. In the management of a palpable breast mass, a negative mammogram must not discourage biopsy of a clinically suspicious lesion. Electronically Signed By: Floridalma baumann/louis:12/09/2022 15:47:24 copy to: GALLO STINSON letter sent: Normal Exam ACR BI-RADS Category 1: Negative 3341F
== END ==
PROVIDERS: PCP Family Medicine; Referring Provider Family Medicine; Visit Provider Family Medicine
DX: Z12.31 Encounter for screening mammogram for malignant neoplasm of breast (principal)
CPT/HCPCS: 77063; 77067

== ENCOUNTER → 2023-01-12 07:42 | Outpatient (CLI) | payer BC, OTHER, MEDICAID, SELFPAY ==
[2023-01-12 09:25] LABS: Free T3, Triiodothyronine Free 3.88 pg/mL (2.77-5.27); Free T4, Direct Thyroxine 1.18 ng/dL (0.78-2.19)
[2023-01-12 09:42] LABS: Ferritin 11 ng/mL (6-137)
[2023-01-12 10:14] LABS: Folate 19.6 ng/mL (2.76-20.0); Vitamin B12 589 pg/mL (239-931)
[2023-01-13 09:34] LABS: Thyroid Peroxidase Antibodies <9 IU/mL (0-34)
[2023-01-13 20:07] LABS: Deamidated Gliadin Ab IgA 3 units (0-19); Deamidated Gliadin Ab IgG 2 units (0-19); Immunoglobulin A,Qn 75 mg/dL (87-352); t-Transglutaminase IgA <2 U/mL (0-3)
[2023-01-16 20:38] LABS: ANA Screen, IFA Negative (.)
== END ==
PROVIDERS: PCP Family Medicine; Referring Provider Naturopath; Visit Provider Naturopath
DX: M79.10 Myalgia, unspecified site (principal); R41.89 Other symptoms and signs involving cognitive functions and awareness; G93.32 Myalgic encephalomyelitis/chronic fatigue syndrome
CPT/HCPCS: 36415; 82607; 82728; 82746; 82784; 83516; 84439; 84443; 84481; 86038; 86376

== ENCOUNTER → 2023-02-28 10:11 | Outpatient (CLI) | payer BC, OTHER, MEDICAID, SELFPAY ==
--- NOTE | 2023-02-28 | DI.RAD.S_ITS ---
PROCEDURE: XR HIP W PEL IF DONE RT 2V INDICATIONS: Pain in right hip TECHNIQUE: AP pelvis with lateral view(s) of the right hip(s). COMPARISON: [facility], , XR HIP W PEL IF DONE RT 2V, 12/02/2019, 11:22. FINDINGS: Bones: No fractures or dislocations. Pelvic ring appears intact. No suspicious bony lesions. Moderate right and mild left hip periarticular osteophyte formation. Soft tissues: The visualized bowel gas pattern is normal. No suspicious soft tissue calcifications. IMPRESSION: Bilateral hip osteoarthritis. No acute fracture. No osseous lesion. If symptoms and/or clinical suspicion for pathology persist, further assessment with repeat, or advanced imaging (e.g., CT, MRI, or bone scan) may be helpful for further assessment. Dictated by: Scottie Haque M.D. on 02/28/2023 at 11:37 Approved by: Scottie Haque M.D. on 02/28/2023 at 11:38
== END ==
PROVIDERS: PCP Naturopath; Referring Provider Naturopath; Visit Provider Naturopath
DX: M25.551 Pain in right hip (principal); M16.0 Bilateral primary osteoarthritis of hip
CPT/HCPCS: 73502

== ENCOUNTER → 2023-06-02 13:59 | Outpatient (CLI) | payer BC, OTHER, MEDICAID, SELFPAY ==
[2023-06-02 14:40] LABS: Hematocrit 40.9 % (36-46); Hemoglobin 14.4 g/dL (12.0-16.0); Mean Corpuscular HGB Conc 35.1 % (30-36); Mean Corpuscular Hemoglobin 30.4 PG (26-34); Mean Corpuscular Volume 86.5 fL (80-100); Platelet Count 204 X10^3/uL (150-400); Red Blood Cell Count 4.73 X10^6/uL (4.0-5.2); Red Cell Distribution Width 13.8 % (11.6-14.8); White Blood Cell Count 8.2 X10^3/uL (4.5-11.0)
[2023-06-02 14:55] LABS: C-Reactive Protein Quant < 0.5 mg/dL (<1.0)
[2023-06-02 15:26] LABS: Ferritin 29 ng/mL (6-137)
[2023-06-02 15:40] LABS: Vitamin B12 916 pg/mL (239-931)
== END ==
PROVIDERS: PCP Naturopath; Referring Provider Naturopath; Visit Provider Naturopath
DX: E61.1 Iron deficiency (principal); G93.32 Myalgic encephalomyelitis/chronic fatigue syndrome
CPT/HCPCS: 36415; 82607; 82728; 85027; 86140; 86900; 86901

== ENCOUNTER → 2023-07-21 07:32 | Outpatient (CLI) | payer BC, SELFPAY ==
--- NOTE | 2023-07-21 | DI.US.S_ITS ---
PROCEDURE: US ABDOMEN LIMITED INDICATIONS: LUMP ON RT ANTERIOR RIB UNDER BREAST TECHNIQUE: Real-time focused scanning was performed of the abdominal wall area of palpable abnormality, with image documentation. COMPARISON: None. FINDINGS: In the area of palpable abnormality, there is horizontally oriented, ovoid, partially circumscribed mass slightly more echogenic compared to adjacent subcutaneous fat. This mass measures 3.1 x 0.8 x 3.4 cm. There is no internal or peripheral vascularity by color Doppler imaging. There is no posterior shadowing. The deep border is well defined. IMPRESSION: 1. 3.4 cm subcutaneous lipoma corresponds to the patient's palpable abnormality. Dictated by: Floridalma Mcnulty M.D. on 07/21/2023 at 9:31 Approved by: Floridalma Mcnulty M.D. on 07/21/2023 at 9:37
== END ==
PROVIDERS: PCP Naturopath; Referring Provider Naturopath; Visit Provider Naturopath
DX: D17.1 Benign lipomatous neoplasm of skin and subcutaneous tissue of trunk (principal)
CPT/HCPCS: 76705

== ENCOUNTER → 2023-11-03 08:59 | Outpatient (CLI) | payer BC, SELFPAY ==
[2023-11-03 09:27] LABS: Hematocrit 42.7 % (36-46); Hemoglobin 14.9 g/dL (12.0-16.0); Mean Corpuscular HGB Conc 34.8 % (30-36); Mean Corpuscular Hemoglobin 30.8 PG (26-34); Mean Corpuscular Volume 88.3 fL (80-100); Platelet Count 215 X10^3/uL (150-400); Red Blood Cell Count 4.84 X10^6/uL (4.0-5.2); Red Cell Distribution Width 12.5 % (11.6-14.8); White Blood Cell Count 6.4 X10^3/uL (4.5-11.0)
[2023-11-03 10:05] LABS: Vitamin D 25 Hydroxy (D3) 42.5 ng/mL (30.0-100.0)
[2023-11-03 10:23] LABS: Ferritin 29 ng/mL (6-137)
[2023-11-03 10:38] LABS: Vitamin B12 791 pg/mL (239-931)
== END ==
PROVIDERS: PCP Naturopath; Referring Provider Naturopath; Visit Provider Naturopath
DX: E61.1 Iron deficiency (principal); E55.9 Vitamin D deficiency, unspecified
CPT/HCPCS: 36415; 82306; 82607; 82728; 85027

== ENCOUNTER → 2023-12-12 08:15 | Outpatient (CLI) | payer BC, SELFPAY ==
--- NOTE | 2023-12-12 | DI.MG.S_ITS ---
BILATERAL DIGITAL SCREENING MAMMOGRAM 3D/2D WITH CAD: 12/12/2023 CLINICAL: Routine screening. Comparison is made to exams dated: 12/09/2022 mammogram, 09/28/2020 mammogram, and 02/19/2019 mammogram - [facility]. Both breasts are heterogeneously dense, which may obscure small masses (category c / 51-75% glandular tissue). Current study was also evaluated with a Computer Aided Detection (CAD) system. There is a possible developing oval asymmetry in the left breast middle depth inferior region seen on the mediolateral oblique view only. This is more prominent. No other significant masses, calcifications, or other findings are seen in either breast. IMPRESSION: INCOMPLETE: NEEDS ADDITIONAL IMAGING EVALUATION The possible developing oval asymmetry in the left breast is indeterminate. Additional views with possible ultrasound are recommended. Based on the Tyrer Cuzick model (a risk assessment model) the patient's lifetime risk is 13.5% and her 10 year risk is 2.6%. According to the ACR, ACS, and NCCN guidelines, an annual breast MRI exam along with mammogram is recommended if the patient's lifetime risk is 20% or greater. This exam was interpreted at Station ID: [id number]. NOTE: For mammograms, a report in lay terms will be sent to the patient. Approximately 15% of breast malignancies will not be visualized mammographically. In the management of a palpable breast mass, a negative mammogram must not discourage biopsy of a clinically suspicious lesion. Electronically Signed By: Geovany goldberg/louis:12/12/2023 17:37:47 copy to: GALLO STINSON letter sent: Additional Imaging Needed ACR BI-RADS Category 0: Incomplete 3340F
== END ==
LOC: MAMMO 08:15
PROVIDERS: PCP Naturopath; Referring Provider Family Medicine; Visit Provider Family Medicine
DX: Z12.31 Encounter for screening mammogram for malignant neoplasm of breast (principal); R92.333 Mammographic heterogeneous density, bilateral breasts
CPT/HCPCS: 77063; 77067

== ENCOUNTER → 2023-12-22 10:14 | Outpatient (CLI) | payer BC, SELFPAY ==
--- NOTE | 2023-12-22 10:15 | DI.MG.S_ITS ---
UNILATERAL LEFT DIGITAL DIAGNOSTIC MAMMOGRAM 3D/2D WITH ADDITIONAL VIEWS: 12/22/2023 CLINICAL: Additional evaluation requested from prior study. Comparison is made to exams dated: 12/12/2023 mammogram, 12/09/2022 mammogram, and 09/28/2020 mammogram - [facility]. The left breast is heterogeneously dense, which may obscure small masses (category c / 51-75% glandular tissue). With focal spot compression, and additional views, the abnormality seen on screening mammography in the left breast in the middle depth central to the nipple resolves. No significant masses, calcifications, or other findings are seen in the breast. IMPRESSION: INCOMPLETE: NEEDS ADDITIONAL IMAGING EVALUATION Resolution of screening mammography abnormality with additional views. Ultrasound evaluation to confirm resolution is recommended and was performed immediately following this exam. Based on the Tyrer Cuzick model (a risk assessment model) the patient's lifetime risk is 13.5% and her 10 year risk is 2.6%. According to the ACR, ACS, and NCCN guidelines, an annual breast MRI exam along with mammogram is recommended if the patient's lifetime risk is 20% or greater. This exam was interpreted at Station ID: [id number]. NOTE: For mammograms, a report in lay terms will be sent to the patient. Approximately 15% of breast malignancies will not be visualized mammographically. In the management of a palpable breast mass, a negative mammogram must not discourage biopsy of a clinically suspicious lesion. Electronically Signed By: Floridalma baumann/:12/22/2023 11:34:16 copy to: GALLO STINSON ACR BI-RADS Category 0: Incomplete 3340F
--- NOTE | 2023-12-22 10:15 | DI.US.S_ITS ---
LIMITED ULTRASOUND OF LEFT BREAST: 12/22/2023 CLINICAL: Patient returns today to evaluate a focal asymmetry in the left breast. Comparison is made to exams dated: 12/22/2023 mammogram, 12/12/2023 mammogram, 12/09/2022 mammogram, 09/28/2020 mammogram, 02/19/2019 mammogram, and 10/25/2017 mammogram - [facility]. Color flow ultrasound of the left breast 2-4 o'clock region was performed. Zhu scale images of the real-time examination were reviewed. In the 2:00-3:00 area of the left breast where the mammographic asymmetry was seen on screening, there is no sonographic correlate. Incidentally, there is a 0.7 cm x 0.5 cm x 0.5 cm oval cyst with a smooth internal wall in the left breast at 4 o'clock anterior depth 2 cm from the nipple. This oval cyst is hypoechoic with a well-defined boundary and posterior acoustic enhancement. Color flow imaging demonstrates that there is no vascularity present. IMPRESSION: PROBABLY BENIGN No sonographic correlate to the resolved screening mammogram finding. The 0.7 cm x 0.5 cm x 0.5 cm oval cyst in the left breast is either a simple cyst or a minimally complicated cyst and is probably benign. A follow-up left mammogram and an ultrasound in 6 months is recommended to demonstrate stability. Findings and recommendations were conveyed to the patient at time of exam. This exam was interpreted at Station ID: [id number]. Electronically Signed By: Floridalma baumann/:12/22/2023 11:37:03 copy to: GALLO STINSON letter sent: Followup Recommended Ultrasound BI-RADS: 3 Probably benign
== END ==
LOC: MAMMO 10:15
PROVIDERS: PCP Naturopath; Referring Provider Physician Assistant; Visit Provider Physician Assistant
DX: R92.8 Other abnormal and inconclusive findings on diagnostic imaging of breast (principal); R92.332 Mammographic heterogeneous density, left breast; N60.02 Solitary cyst of left breast
CPT/HCPCS: 76642; 77065; G0279

== ENCOUNTER → 2023-12-28 14:36 | Outpatient (CLI) | payer BC, SELFPAY ==
[2023-12-28 15:09] LABS: Add Manual Diff / Slide Review NO; Basophils Absolute Auto 0 /uL (0-100); Basophils Percent Auto 0.4 % (0-2); Eosinophils Absolute Auto 0 /uL (0-450); Eosinophils Percent Auto 0.2 % (2-4); Hematocrit 43.2 % (36-46); Hemoglobin 15.1 g/dL (12.0-16.0); Lymphocytes Absolute Auto 2400 /uL (1100-4500); Lymphocytes Percent Auto 34.1 % (25-40); Mean Corpuscular Hemoglobin 31.1 PG (26-34); Mean Corpuscular Volume 88.9 fL (80-100); Monocytes Absolute Auto 400 /uL (0-900); Monocytes Percent Auto 5.5 % (3-14); Neutrophils Absolute Auto 4200 /uL (1500-7000); Neutrophils Percent Auto 59.8 % (50-75); Platelet Count 220 X10^3/uL (150-400); Red Blood Cell Count 4.86 X10^6/uL (4.0-5.2); Red Cell Distribution Width 12.1 % (11.6-14.8)
[2023-12-28 16:43] LABS: Ferritin 46 ng/mL (6-137)
== END ==
PROVIDERS: PCP Naturopath; Referring Provider Naturopath; Visit Provider Naturopath
DX: E61.1 Iron deficiency (principal)
CPT/HCPCS: 36415; 82728; 85025

== ENCOUNTER → 2024-06-07 09:30 | Outpatient (CLI) | payer BC, OTHER, MEDICAID, SELFPAY ==
--- NOTE | 2024-06-07 09:32 | DI.MG.S_ITS ---
UNILATERAL LEFT DIGITAL DIAGNOSTIC MAMMOGRAM 3D/2D: 06/07/2024 CLINICAL: Patient returns for a 6 month follow up of the left breast. Comparison is made to exams dated: 09/28/2020 mammogram, 12/09/2022 mammogram, 12/12/2023 mammogram, and 12/22/2023 mammogram - [facility]. The breasts are heterogeneously dense, which may obscure small masses (category c / 51-75% glandular tissue). No significant masses, calcifications, or other findings are seen in the breast. IMPRESSION: INCOMPLETE: NEED ADDITIONAL IMAGING EVALUATION No mammographic evidence of malignancy. A targeted ultrasound is recommended and will immediately follow. Based on the Tyrer Cuzick model (a risk assessment model) the patient's lifetime risk is 13.4% and her 10 year risk is 2.7%. According to the ACR, ACS, and NCCN guidelines, an annual breast MRI exam along with mammogram is recommended if the patient's lifetime risk is 20% or greater. This exam was interpreted at Station ID: [id number]. NOTE: For mammograms, a report in lay terms will be sent to the patient. Approximately 15% of breast malignancies will not be visualized mammographically. In the management of a palpable breast mass, a negative mammogram must not discourage biopsy of a clinically suspicious lesion. Electronically Signed By: Lev Natarajan M.D. slc/:06/07/2024 10:15:35 copy to: GALLO STINSON ACR BI-RADS Category 0: Incomplete: Need Additional Imaging Evaluation
--- NOTE | 2024-06-07 09:32 | DI.US.S_ITS ---
LIMITED ULTRASOUND OF LEFT BREAST: 06/07/2024 CLINICAL: Left 6 month follow-up of cysts. Comparison is made to exams dated: 06/07/2024 mammogram, 12/22/2023 ultrasound, 12/22/2023 mammogram, 12/12/2023 mammogram, 12/09/2022 mammogram, and 09/28/2020 mammogram - [facility]. Color flow and real-time ultrasound of the left breast 4 o'clock region were performed. Zhu scale images of the real-time examination were reviewed. The cyst in the left breast at 4 o'clock anterior depth is no longer seen. IMPRESSION: NEGATIVE There is no sonographic evidence of malignancy. The cyst in the left breast at 4 o'clock anterior depth is no longer seen and is benign. Return to annual mammogram screening schedule is recommended. This exam was interpreted at Station ID: [id number]. Electronically Signed By: Lev Natarajan M.D. slc/:06/07/2024 10:51:04 copy to: GALLO STINSON letter sent: Normal Exam ACR BI-RADS Category 1: Negative
== END ==
PROVIDERS: PCP Family Medicine; Referring Provider Physician Assistant; Visit Provider Physician Assistant
DX: R92.8 Other abnormal and inconclusive findings on diagnostic imaging of breast (principal); R92.331 Mammographic heterogeneous density, right breast
CPT/HCPCS: 76642; 77065; G0279

== ENCOUNTER → 2024-06-13 08:09 | Outpatient (CLI) | payer BC, OTHER, MEDICAID, SELFPAY ==
[2024-06-13 10:07] LABS: Alanine Aminotransferase 18 IU/L (<35); Albumin 4.3 g/dL (3.5-5.0); Albumin Globulin Ratio 1.7 (1.0-2.8); Alkaline Phosphatase 57 U/L (38-126); Aspartate Aminotransferase 21 IU/L (14-36); BUN Creatinine Ratio 15.6 (6-22); Bilirubin Total 0.7 mg/dL (0.2-1.3); Blood Urea Nitrogen 12 mg/dL (7-17); Calcium 9.1 mg/dL (8.4-10.2); Carbon Dioxide 26 mmol/L (22-32); Chloride 105 mmol/L (98-107); Cholesterol 203 mg/dL (140-199); Estimated Glomerular Filt Rate > 60 mL/min (>60); Globulin 2.5 g/dL (1.7-4.1); Glucose 80 mg/dL (70-100); HDL Cholesterol 78 mg/dL (40-60); HEMOLYSIS < 15 (0-50); LDL Cholesterol Calculated 107 mg/dL (<100); Potassium 4.4 mmol/L (3.4-5.1); Sodium 138 mmol/L (137-145); Total Protein 6.8 g/dL (6.3-8.2); Triglycerides 88 mg/dL (35-150)
== END ==
PROVIDERS: PCP Family Medicine; Referring Provider Physician Assistant; Visit Provider Physician Assistant
DX: R53.82 Chronic fatigue, unspecified (principal); Z13.220 Encounter for screening for lipoid disorders; Z13.6 Encounter for screening for cardiovascular disorders
CPT/HCPCS: 36415; 80053; 80061

== ENCOUNTER → 2024-07-12 08:03 | Outpatient (CLI) | payer BC, OTHER, MEDICAID, SELFPAY ==
[2024-07-12 09:39] LABS: Add Manual Diff / Slide Review NO; Basophils Absolute Auto 0 /uL (0-100); Basophils Percent Auto 0.5 % (0-2); Eosinophils Absolute Auto 100 /uL (0-450); Eosinophils Percent Auto 2.1 % (2-4); Hematocrit 44.2 % (36-46); Hemoglobin 15.2 g/dL (12.0-16.0); Lymphocytes Absolute Auto 1800 /uL (1100-4500); Lymphocytes Percent Auto 27.9 % (25-40); Mean Corpuscular HGB Conc 34.4 % (30-36); Mean Corpuscular Hemoglobin 30.1 PG (26-34); Mean Corpuscular Volume 87.3 fL (80-100); Monocytes Absolute Auto 400 /uL (0-900); Monocytes Percent Auto 6.4 % (3-14); Neutrophils Absolute Auto 4100 /uL (1500-7000); Neutrophils Percent Auto 63.1 % (50-75); Platelet Count 242 X10^3/uL (150-400); Red Blood Cell Count 5.07 X10^6/uL (4.0-5.2); Red Cell Distribution Width 12.6 % (11.6-14.8); White Blood Cell Count 6.5 X10^3/uL (4.5-11.0)
[2024-07-12 10:34] LABS: Ferritin 17 ng/mL (6-137)
[2024-07-12 10:48] LABS: Vitamin B12 763 pg/mL (239-931)
== END ==
PROVIDERS: PCP Family Medicine; Referring Provider Naturopath; Visit Provider Naturopath
DX: E61.1 Iron deficiency (principal); R53.83 Other fatigue
CPT/HCPCS: 36415; 82607; 82728; 85025

== ENCOUNTER → 2024-10-28 07:54 | Outpatient (CLI) | payer BC, SELFPAY ==
[2024-10-28 08:23] LABS: Add Manual Diff / Slide Review NO; Basophils Absolute Auto 0 /uL (0-100); Basophils Percent Auto 0.5 % (0-2); Eosinophils Absolute Auto 200 /uL (0-450); Eosinophils Percent Auto 2.8 % (2-4); Hemoglobin 15.1 g/dL (12.0-16.0); Lymphocytes Absolute Auto 2000 /uL (1100-4500); Lymphocytes Percent Auto 32.5 % (25-40); Mean Corpuscular HGB Conc 34.4 % (30-36); Mean Corpuscular Hemoglobin 30.3 PG (26-34); Monocytes Absolute Auto 400 /uL (0-900); Monocytes Percent Auto 6.8 % (3-14); Neutrophils Absolute Auto 3500 /uL (1500-7000); Neutrophils Percent Auto 57.4 % (50-75); Platelet Count 216 X10^3/uL (150-400); Red Cell Distribution Width 13.4 % (11.6-14.8); White Blood Cell Count 6.1 X10^3/uL (4.5-11.0)
[2024-10-28 08:38] LABS: Alanine Aminotransferase 20 IU/L (<35); Albumin 4.2 g/dL (3.5-5.0); Albumin Globulin Ratio 1.8 (1.0-2.8); Alkaline Phosphatase 52 U/L (38-126); Aspartate Aminotransferase 23 IU/L (14-36); BUN Creatinine Ratio 19.1 (6-22); Bilirubin Total 0.4 mg/dL (0.2-1.3); Blood Urea Nitrogen 13 mg/dL (7-17); Calcium 9.2 mg/dL (8.4-10.2); Carbon Dioxide 27 mmol/L (22-32); Chloride 105 mmol/L (98-107); Cholesterol 195 mg/dL (140-199); Estimated Glomerular Filt Rate > 60 mL/min (>60); Globulin 2.4 g/dL (1.7-4.1); Glucose 89 mg/dL (70-100); HDL Cholesterol 78 mg/dL (40-60); HEMOLYSIS < 15 (0-50); LDL Cholesterol Calculated 105 mg/dL (<100); Potassium 4.5 mmol/L (3.4-5.1); Sodium 136 mmol/L (137-145); Total Protein 6.6 g/dL (6.3-8.2); Triglycerides 61 mg/dL (35-150)
[2024-10-28 09:11] LABS: Ferritin 16 ng/mL (6-137)
== END ==
PROVIDERS: PCP Family Medicine; Referring Provider Naturopath; Visit Provider Naturopath
DX: Z00.00 Encounter for general adult medical examination without abnormal findings (principal); E61.1 Iron deficiency; E55.9 Vitamin D deficiency, unspecified
CPT/HCPCS: 36415; 80053; 80061; 82306; 82728; 85025

== ENCOUNTER → 2024-12-06 08:14 | Outpatient (CLI) | payer BC, SELFPAY ==
[2024-12-06 10:09] LABS: Influenza A - CEPHEID Flu A NEGATIVE (NEGATIVE); Influenza B - CEPHEID Flu B NEGATIVE (NEGATIVE); Respiratory Syncytial Virus Negative (Negative)
[2024-12-06 10:10] LABS: COVID-19 CEPHEID 4-PLEX PCR Negative (Negative)
== END ==
PROVIDERS: PCP Family Medicine; Visit Provider Nurse Practitioner Family
DX: J02.9 Acute pharyngitis, unspecified (principal); R05.1 Acute cough
CPT/HCPCS: 0241U; 87070; 87147

== ENCOUNTER → 2024-12-24 09:09 | Outpatient (CLI) | payer BC, SELFPAY ==
--- NOTE | 2024-12-24 09:10 | DI.MG.S_ITS ---
MM screening mammo BI: 12/24/2024. BI-RADS: 1 CLINICAL: 49-year old female for bilateral screening mammogram. Tyrer-Cuzick lifetime risk of 13.2%. No personal or first-degree family history of breast cancer. The patient had a prior left breast biopsy. PRIOR EXAMS 06/07/2024, 12/22/2023, 12/12/2023, 12/09/2022, 09/28/2020, 02/19/2019, 10/25/2017. MAMMOGRAPHY TECHNIQUE: 2D and 3D (tomosynthesis) digital mammographic views obtained, with additional images as needed for full coverage. Current study was also evaluated with a Computer Aided Detection (CAD) system. DENSITY C. The breasts are heterogeneously dense, which may obscure small masses. MAMMOGRAPHY FINDINGS Bilateral: No suspicious mass, asymmetry, microcalcification, or other abnormality seen. IMPRESSION: * No evidence of malignancy. RECOMMENDATIONS Bilateral * Annual screening mammography. OVERALL ASSESSMENT CATEGORY BI-RADS-1: Negative. The [employer] recommends annual screening mammography beginning at age 40 for women with average risk of breast cancer. ELECTRONICALLY SIGNED: Margret Valentine M.D. on 12/24/2024 at 12:56:04 PM PT Interpreting Station ID: [id number]
== END ==
PROVIDERS: PCP Family Medicine; Referring Provider Family Medicine; Visit Provider Family Medicine
DX: Z12.31 Encounter for screening mammogram for malignant neoplasm of breast (principal); R92.333 Mammographic heterogeneous density, bilateral breasts
CPT/HCPCS: 77063; 77067